=== PATIENT | male | born 1940 | race Caucasian/White ===

== ENCOUNTER → 2021-09-21 | Outpatient (CLI) | payer MEDICARE, BC | LOC: RAD 09:45 | DX: K74.60 Unspecified cirrhosis of liver (principal); C78.00 Secondary malignant neoplasm of unspecified lung; R18.0 Malignant ascites; C77.2 Secondary and unspecified malignant neoplasm of intra-abdominal lymph nodes; R14.0 Abdominal distension (gaseous) | CPT/HCPCS: Q9967 ==